=== PATIENT | female | born 1930 | race Caucasian/White ===

== ENCOUNTER 2017-10-21 11:28 | Observation (INO) ==
--- NOTE | 2017-10-21 12:11 | Emergency Department Note ---
START Narrative - START START: I examined this patient and my medical decision-making was reviewed with the Resident Physician. I agree with the documented findings, disposition and treatment plan as described except to the extent set forth below. 86 showed female presents to the emergency room for syncope. Patient was getting out of the bath or shower and remembers seeing black spots and woke up on the floor. There were staff members from the long-term around her. She lives in the [facility]. She denies any pain at this time. She is slightly somnolent. She is able to move all 4 extremities. We will do a syncopal workup here in the ER. Possible admission. Patient is a full code. I noticed her EKG to have a heart rate in the 50s. The only previous EKG was in 2004. Anticipate likely admission for her due to her heart rate in the 50s with the syncopal history.
--- NOTE | 2017-10-21 12:23 | Emergency Department Note ---
Disposition Clinical Impression: Syncope Qualifiers: Syncope type: unspecified Qualified Code(s): R55 - Syncope and collapse Disposition: Admitted As Inpatient Condition: Good Referrals: Tirso Espinoza MD [Primary Care Provider] - Forms: ED Satisfaction Letter Syncope HPI - General Chief Complaint: ED Syncope Stated Complaint: passed out Time Seen by Provider: 10/21/17 11:30 Source: patient, EMS Limitations: no limitations Nursing Notes Reviewed: Yes Vital Signs Reviewed: Yes - History of Present Illness HPI Narrative: Patient presents today from half-way for evaluation of syncope. Patient was in the shower when she passed out. Came to with sternal rub. It is unknown how long she was down for. Patient states she felt kind of sick to her stomach at the time she woke but otherwise feels well now. Patient has no complaints this time. Patient did hit her head. Patient is on aspirin. Patient does have a history of diabetes and not eat breakfast. Blood sugar within normal limits. - Related Data Home Medications Medication Instructions Recorded Confirmed Acetaminophen [Tylenol Arthritis] 650 mg PO Q4H 10/21/17 10/21/17 Aspirin [Lo-Dose Aspirin EC] 81 mg PO DAILY 10/21/17 10/21/17 Cyanocobalamin (B-12) [Vitamin B12] 1,000 mcg IJ AD 10/21/17 10/21/17 Docusate [Colace] 100 mg PO TID 10/21/17 10/21/17 Donepezil [Aricept] 10 mg PO HS 10/21/17 10/21/17 Ergocalciferol (VITAMIN D2) 50,000 unit PO QWEEK 10/21/17 10/21/17 [Vitamin D2] Furosemide [Lasix] 20 mg PO BID 10/21/17 10/21/17 Guaifen/Dextromethorphan/PE [Child 10 ml PO Q4H 10/21/17 10/21/17 Mucus Relief M-S Cold Lq] Latanoprost [Xalatan] 2.5 ml OP AD 10/21/17 10/21/17 Melatonin [Melatin] 6 mg PO HS 10/21/17 10/21/17 Memantine HCl [Namenda Xr] 28 mg PO DAILY 10/21/17 10/21/17 Metoprolol [Lopressor] 12.5 mg PO BID 10/21/17 10/21/17 Potassium Chloride [Klor-Con 10] 10 meq PO DAILY 10/21/17 10/21/17 Simvastatin [Zocor] 20 mg PO HS 10/21/17 10/21/17 SitaGLIPtin [Januvia] 100 mg PO DAILY 10/21/17 10/21/17 Allergies Allergy/AdvReac Type Severity Reaction Status Date / Time No Known Allergies Allergy Verified 10/21/17 11:39 Review of Systems: CONSTITUTIONAL: No weight loss, fever, chills, weakness or fatigue. HEENT: Eyes: No visual changes. Ears, Nose, Throat: No hearing loss, difficulty talking or unable to swallow. SKIN: No rash or itching. CARDIOVASCULAR: No chest pain, chest pressure or chest discomfort. No palpitations or edema. RESPIRATORY: No shortness of breath, cough or sputum. GASTROINTESTINAL: Nausea is resolved; No anorexia, vomiting or diarrhea. No abdominal pain or blood. GENITOURINARY: No burning on urination or hematuria. NEUROLOGICAL: No headache, dizziness, syncope, paralysis, ataxia, numbness or tingling in the extremities. No change in bowel or bladder control. MUSCULOSKELETAL: No muscle pain, back pain, joint pain or stiffness. Past Medical History - Past Medical History Medical history: Reports: arthritis, diabetes, hyperlipidemia, hypertension, other Psychiatric history: Reports: depression - Social History Smoking Status: Never smoker Smokeless Tobacco Status: No Alcohol use: Reports: none Drug use: Reports: none Physical Exam General: Well appearing, nontoxic, no acute distress Head: Normocephalic Atraumatic Eyes: PERRL, EOMI ENT: Airway patent, no stridor Neck: supple, no meningismus Chest: Lungs clear to auscultation bilateral Cardiac: Regular rate and rhythm, no murmurs, rubs or gallops Abdomen: soft, nontender, nondistended; no guarding, rebound, or tenderness to percussion Musculoskeletal: Calves symmetric, nontender, no palpable cord Skin: No rash, normal skin tone Neuro: Alert and Oriented to person, place; No focal deficit, CN 2-12 symmetric and intact - General Limitations: no limitations General appearance: alert, in no apparent distress Course - Reevaluation(s) Reevaluation #1: Discussed with half-way. The nurse who was taking care of the patient called to check on her. The patient's episode is approximately the second time this is happened. First time did not undergo evaluation. The patient got a shower and after the shower but has decreased responsiveness. They laid her down and tried to obtain a pulse. They state that her pulse was in the low 40s and the patient was "half white". The blood sugar was checked and found to be 155. The blood pressure was found to be above 140 systolically. Patient remains asymptomatic at this time. - Consultations Consultation #1: Discussed with hospitalist, Dr. Rosen, patient accepted for admission. Vital Signs Temperature 98.6 F 10/21/17 11:31 Pulse Rate 51 10/21/17 11:31 Respiratory Rate 16 10/21/17 11:31 Blood Pressure 102/58 10/21/17 11:31 O2 Sat by Pulse Oximetry 95 10/21/17 11:31 Temperature 98.6 F 10/21/17 11:31 Pulse Rate 61 10/21/17 14:44 Respiratory Rate 16 10/21/17 14:44 Blood Pressure 125/61 10/21/17 14:44 O2 Sat by Pulse Oximetry 94 10/21/17 14:44 Oxygen Delivery Oxygen Delivery Room Air Syncope - Lab Data Result diagrams: 10/21/17 12:08 10/21/17 12:08 Lab Results 10/21/17 10/21/17 10/21/17 Range/Units 12:02 12:08 12:08 WBC 9.6 (4.3-11.1) K/mcL RBC 4.19 (3.82-4.97) M/mcL Hgb 12.1 (11.5-15.4) g/dL Hct 36.9 (35.3-44.9) % MCV 88.1 (83.0-100.0) fL MCH 28.9 (28.0-33.3) pg MCHC 32.8 (31.6-35.5) g/dL RDW 14.2 (11.5-14.5) % Plt Count 211 (140-400) K/mcL MPV 10.8 (9.4-12.4) fL Immature Gran % 0.4 (0-4) % Seg Neutrophils % 76.0 % Lymphocytes % 15.4 % Monocytes % 6.2 % Eosinophils % 1.6 % Basophils % 0.4 % Neutrophils # 7.3 (1.6-8.9) K/mcL Lymphocytes # 1.5 (0.6-4.6) K/mcL Monocytes # 0.6 (0.0-1.3) K/mcL Eosinophils # 0.2 (0.0-0.6) K/mcL Basophils # 0.0 (0.0-0.2) K/mcL Sodium 142 (136-145) mEq/L Potassium 4.3 (3.5-5.1) mEq/L Chloride 107 (98-107) mEq/L Carbon Dioxide 28 (23-29) mEq/L BUN 20 (8-23) mg/dL Creatinine 1.10 (0.60-1.20) mg/dL Est GFR ( Amer) 57 L (> 60) Est GFR (Non-Af Amer) 47 L (> 60) BUN/Creatinine Ratio 18 (6-26) Glucose 133 H (70-105) mg/dL POC Glucose 129 H (58-89) Calculated Osmolality 299 (280-300) Calcium 8.6 (8.6-10.3) mg/dL Magnesium (1.6-2.6) mg/dL Troponin I (< 0.04) ng/mL 10/21/17 10/21/17 Range/Units 12:08 12:08 WBC (4.3-11.1) K/mcL RBC (3.82-4.97) M/mcL Hgb (11.5-15.4) g/dL Hct (35.3-44.9) % MCV (83.0-100.0) fL MCH (28.0-33.3) pg MCHC (31.6-35.5) g/dL RDW (11.5-14.5) % Plt Count (140-400) K/mcL MPV (9.4-12.4) fL Immature Gran % (0-4) % Seg Neutrophils % % Lymphocytes % % Monocytes % % Eosinophils % % Basophils % % Neutrophils # (1.6-8.9) K/mcL Lymphocytes # (0.6-4.6) K/mcL Monocytes # (0.0-1.3) K/mcL Eosinophils # (0.0-0.6) K/mcL Basophils # (0.0-0.2) K/mcL Sodium (136-145) mEq/L Potassium (3.5-5.1) mEq/L Chloride (98-107) mEq/L Carbon Dioxide (23-29) mEq/L BUN (8-23) mg/dL Creatinine (0.60-1.20) mg/dL Est GFR ( Amer) (> 60) Est GFR (Non-Af Amer) (> 60) BUN/Creatinine Ratio (6-26) Glucose (70-105) mg/dL POC Glucose (58-89) Calculated Osmolality (280-300) Calcium (8.6-10.3) mg/dL Magnesium 2.2 (1.6-2.6) mg/dL Troponin I < 0.03 (< 0.04) ng/mL
[2017-10-21 12:24] LABS: Basophils % 0.4 %; Eosinophils # 0.2 K/mcL (0.0-0.6); Eosinophils % 1.6 %; Hematocrit 36.9 % (35.3-44.9); Hemoglobin 12.1 g/dL (11.5-15.4); Immature Granulocytes % 0.4 % (0-4); Lymphocytes # 1.5 K/mcL (0.6-4.6); Lymphocytes % 15.4 %; Mean Corpuscular HGB Conc 32.8 g/dL (31.6-35.5); Mean Corpuscular Hemoglobin 28.9 pg (28.0-33.3); Mean Corpuscular Volume 88.1 fL (83.0-100.0); Mean Platelet Volume 10.8 fL (9.4-12.4); Monocytes # 0.6 K/mcL (0.0-1.3); Monocytes % 6.2 %; Neutrophils # 7.3 K/mcL (1.6-8.9); Platelet Count 211 K/mcL (140-400); Red Blood Count 4.19 M/mcL (3.82-4.97); Red Cell Distribution Width 14.2 % (11.5-14.5)
[2017-10-21 12:35] LABS: Calcium 8.6 mg/dL (8.6-10.3); Potassium 4.3 mEq/L (3.5-5.1)
[2017-10-21] MEDS ORDERED: Dextrose Gel 15 GM/37.5 ML TUBE PO PRN ×2 (15:32)
[2017-10-21] MEDS ORDERED: Naloxone 0.4 MG/ML INJ IVP PRN (15:32)
[2017-10-21] MEDS ORDERED: *HR* Morphine 2 MG/ML SYRINGE IVP PRN (15:32)
[2017-10-21] MEDS ORDERED: Ondansetron 4 MG/2 ML VIAL IVP PRN (15:32)
[2017-10-21] MEDS ORDERED: D5% in Water 1,000 ML IVC PRN (15:32)
[2017-10-21] MEDS ORDERED: *HR* Dextrose 50 % in Water (Syg) 50 ML SYRINGE IVP PRN (15:32)
[2017-10-21] MEDS ORDERED: *HR* OxyCODONE Immed Rel 5 MG TABLET PO PRN (15:32)
[2017-10-21] MEDS ORDERED: Acetaminophen 325 MG TABLET PO PRN (15:32)
--- NOTE | 2017-10-21 15:43 | Internal Med History&Physical ---
Date of Encounter: 10/21/17 Time of Encounter: 15:40 Assessment and Plan (1) Symptomatic bradycardia Current visit: Yes Status: Acute Syncopal episode likely secondary to symptomatic bradycardia related to beta tracey Hold metoprolol, fall precautions, telemetry Troponins If the patient's bradycardia does not improve, we will consult cardiology Omeprazole for GI prophylaxis and subcutaneous heparin for DVT prophylaxis. The patient will be admitted for observation. Full code. Time spent on this admission 40 minutes (2) Diabetes Current visit: Yes Status: Acute Insulin sliding scale Qualifiers: Diabetes mellitus type: type 2 Diabetes mellitus complication status: without complication Diabetes mellitus mcc insulin use: without longwall foreman use Qualified Code(s): E11.9 - Type 2 diabetes mellitus without complications (3) Chronic kidney disease, stage III (moderate) Current visit: Yes Status: Acute (4) CVA (cerebral vascular accident) Current visit: Yes Status: Acute Newly diagnosed Order echocardiogram and carotid ultrasound May order MRI of the brain Continue aspirin, statin, check lipid panel Qualifiers: CVA mechanism: unspecified Qualified Code(s): I63.9 - Cerebral infarction, unspecified (5) Syncope Current visit: Yes Status: Acute Possibly secondary to symptomatic bradycardia Qualifiers: Syncope type: unspecified Qualified Code(s): R55 - Syncope and collapse Internal Medicine - H&P: HPI Chief complaint: Syncopal episode Admitted From: Emergency Dept History of present illness: Ms. Lucas is a 86 year old female with a past medical history of dementia, diabetes type 2 not insulin-dependent, chronic kidney disease is stage III, CVA , who was transferred from a half-way after she passed out in the shower, the patient is not able to provide much history as she is disoriented in time but mentioned that she was dizzy before this happened. According to the half-way notes her heart rate was in the low 40s, she was pale, glucose was 155 and it is unknown how long she was out. Apparently these happen before. Her heart rate and EKG at the moment is 51 she has sinus bradycardia with Q waves in the anterior and inferior leads. Glucose over here is 133. CT scan of the head shows an old left basal ganglia lacunar infarction, chest x-ray is unremarkable. No other complaints Past Med Surg Social Fam HX - Past Medical History Medical history: arthritis (Osteoarthritis), CVA, diabetes (Not insulin- dependent), glaucoma (Open-angle), hyperlipidemia, hypertension, renal disease ( Chronic kidney disease stage III), other (Depression, dementia) Psychiatric history: depression - Past Surgical History Surgical History: no surgical history - Social History Smoking Status: Never smoker Smokeless Tobacco Status: No Alcohol use: none Drug use: none - Additional Family History Additional family history: Unknown Internal Medicine - H&P: Meds Acetaminophen [Tylenol Arthritis] 650 mg PO Q4H 10/21/17 [History] Aspirin [Lo-Dose Aspirin EC] 81 mg PO DAILY 10/21/17 [History] Cyanocobalamin (B-12) [Vitamin B12] 1,000 mcg IJ AD 10/21/17 [History] Docusate [Colace] 100 mg PO TID 10/21/17 [History] Donepezil [Aricept] 10 mg PO HS 10/21/17 [History] Ergocalciferol (VITAMIN D2) [Vitamin D2] 50,000 unit PO QWEEK 10/21/17 [History] Furosemide [Lasix] 20 mg PO BID 10/21/17 [History] Guaifen/Dextromethorphan/PE [Child Mucus Relief M-S Cold Lq] 10 ml PO Q4H [History] Latanoprost [Xalatan] 2.5 ml OP AD 10/21/17 [History] Melatonin [Melatin] 6 mg PO HS 10/21/17 [History] Memantine HCl [Namenda Xr] 28 mg PO DAILY 10/21/17 [History] Metoprolol [Lopressor] 12.5 mg PO BID 10/21/17 [History] Potassium Chloride [Klor-Con 10] 10 meq PO DAILY 10/21/17 [History] Simvastatin [Zocor] 20 mg PO HS 10/21/17 [History] SitaGLIPtin [Januvia] 100 mg PO DAILY 10/21/17 [History] 3 Allergy/AdvReac Type Severity Reaction Status Date / Time No Known Allergies Allergy Verified 10/21/17 11:39 All Systems PM: A 10-system review of systems was performed and is negative for pertinent findings except as documented above in the HPI. Review of systems: The patient appears comfortable, unable to complete review of systems due to confusion. - Constitutional Vitals: Temp Pulse Resp BP Pulse Ox 98.6 F 61 14 134/63 94 10/21/17 11:31 10/21/17 15:21 10/21/17 15:21 10/21/17 15:21 10/21/17 15:21 General appearance: Present: A&O X 2 - Head Head exam: Present: atraumatic, normocephalic - Eye Eye exam: Present: PERRL, conjuntiva pink, sclera anicteric Pupils: Present: PERRL - Neck Neck exam general surgery: Present: supple, trachea midline. Absent: lymphadenopathy - Respiratory Respiratory exam: Present: CTAB. Absent: accessory muscle use, rales, rhonchi, wheezes - Cardiovascular Cardiovascular exam: Present: bradycardia, RRR, +S1, +S2. Absent: diastolic murmur, gallop, rubs, systolic murmur - GI/Abdominal GI/Abdominal exam: Present: normal bowel sounds, soft, no peritoneal signs. Absent: distended, tenderness - Extremities Exam Extremities exam: Present: warm, radial pulses palpable and symmetrical. Absent : calf tenderness, cyanotic, pedal edema - Neurological Exam Neurological exam: Present: CN II-XII intact, no focal deficits. Absent: oriented X3 (Disoriented in time), pronater drift, facial droop, speech deficit - Skin Skin exam: Present: dry, intact Internal Med - H&P Results - Labs CBC & Chem 7: 10/21/17 12:08 10/21/17 12:08 Labs: Short CBC 10/21/17 Range/Units 12:08 WBC 9.6 (4.3-11.1) K/mcL Hgb 12.1 (11.5-15.4) g/dL Hct 36.9 (35.3-44.9) % Plt Count 211 (140-400) K/mcL Neutrophils # 7.3 (1.6-8.9) K/mcL BMP 10/21/17 12:08 Sodium 142 Potassium 4.3 Chloride 107 Carbon Dioxide 28 BUN 20 Creatinine 1.10 Glucose 133 H Calcium 8.6 Cardiac Enzymes 10/21/17 Range/Units 12:08 Troponin I < 0.03 (< 0.04) ng/mL - Impressions ITS Impressions Chest X-Ray 10/21/17 11:55 IMPRESSION: 1. No acute radiographic abnormality in the chest. D/ / Shade Solano MD / Shade Solano MD Interpreting Provider: Shade Solano MD Head CT 10/21/17 11:56 IMPRESSION: No acute intracranial abnormality. Mild atrophy and white matter disease, old left basal ganglia lacunar infarction. D/ / Dorian Bledsoe MD / Dorian Bledsoe MD Interpreting Provider: Dorian Bledsoe MD
[2017-10-21] MEDS ORDERED: NON-FORMULARY MEDICATION 1 EACH EACH (Cyanocobalamin (B-12) 1,000 MCG) IJ SCH (15:45)
[2017-10-21] MEDS: Insulin LISPRO 300 UNITS/3 ML VIAL SQ SCH ×2 (17:11→21:43)
[2017-10-21] MEDS: Latanoprost 2.5 ML BOTTLE BOTH EYES SCH (17:29)
[2017-10-21] MEDS: *HR* Heparin 5,000 UNIT/ML VIAL SQ SCH ×2 (17:29→21:36)
[2017-10-21] MEDS: 0.9 % Sodium Chloride 1,000 ML IVC SCH (17:29)
[2017-10-22] MEDS: *HR* Heparin 5,000 UNIT/ML VIAL SQ SCH ×3 (06:01→20:33)
[2017-10-22 06:14] LABS: BUN/Creatinine Ratio 24 (6-26); Blood Urea Nitrogen 20 mg/dL (8-23); Calcium 8.1 mg/dL (8.6-10.3); Carbon Dioxide 26 mEq/L (23-29); Chloride 109 mEq/L (98-107); Chol/HDL Ratio 2.9 (0-4.9); Cholesterol 104 mg/dL (< 200); Glucose 83 mg/dL (70-105); HDL Cholesterol 36 mg/dL (40-59); LDL Cholesterol,Calculated 53 mg/dL (0-99); Magnesium 2.2 mg/dL (1.6-2.6); Osmolality,Calculated 296 (280-300); Phosphorous 3.6 mg/dL (2.7-4.5); Potassium 4.1 mEq/L (3.5-5.1); Sodium 142 mEq/L (136-145); Triglycerides 73 mg/dL (< 150); eGFR For African Americans > 60 (> 60); eGFR For Non-African Americans > 60 (> 60)
[2017-10-22] MEDS: Insulin LISPRO 300 UNITS/3 ML VIAL SQ SCH ×4 (09:00→20:40)
--- NOTE | 2017-10-22 09:00 | Electrocardiograph Report ---
[facility] Test Date: 2017-10-21 Pat Name: Marlene Lucas Department: 104 Room: 3B11 Gender: F Production Control Clerk: : 1930 Requested By: Delroy Das Order Number: [id number] Reading MD: Wicho Porter MD Measurements Intervals Howard Rate: 51 P: 22 MI: 177 QRS: -15 QRSD: 90 T: 36 QT: 442 QTc: 418 Interpretive Statements SINUS BRADYCARDIA LOW QRS VOLTAGE IN PRECORDIAL LEADS POSSIBLE ANTERIOR MYOCARDIAL INFARCTION, OF INDETERMINATE AGE WARNING: DATA QUALITY MAY AFFECT INTERPRETATION Electronically Signed On 10-22-2017 8:59:12 EST by Wicho Porter MD
[2017-10-22] MEDS: Aspirin Enteric Coated 81 MG Tablet PO SCH (10:43)
[2017-10-22] MEDS: (Memantine Hcl [Namenda Xr] 28 MG) PO SCH (10:45)
[2017-10-22] MEDS: Latanoprost 2.5 ML BOTTLE BOTH EYES SCH (16:13)
--- NOTE | 2017-10-22 16:53 | Internal Med Progress Note ---
Date of Encounter: 10/22/17 Time of Encounter: 16:51 - Assessment and plan (1) Symptomatic bradycardia Current Visit: Yes Status: Acute Assessment and plan: Syncopal episode likely secondary to symptomatic bradycardia related to beta tracey EKG with Sinus Bradicardia Hold metoprolol, fall precautions, telemetry orthostatic blood pressure reviewed, variable pulse rate Troponins less than 0.03 Omeprazole for GI prophylaxis and subcutaneous heparin for DVT prophylaxis. MR/MR head/brain w/o contrast IMPRESSION: 1. No acute intracranial abnormality. No acute infarct. 2. Global parenchymal volume loss with chronic microvascular ischemic change. 3. Sequelae of a prior small hemorrhagic infarct within the left periventricular white matter extending to the left basal ganglia. echo reviewed with LVEF 65% Bilateral carotid systems essentially normal. (2) Syncope Current Visit: Yes Status: Acute Assessment and plan: please see above plan, no further syncope episodes noted reviewed telemetry strips, no episodes below a rate of 70 Per the ER note the patient stated she felt kind of sick to her stomach at the time but she woke up and otherwise feels well now. Patient did hit her head. Patient is on aspirin. Patient does have a history of diabetes and did not eat breakfast. Blood sugar within normal limits. ER had discussed with [facility]. Per the nurse who was taking care of the patient: "This episode is approximately the second time this happened. First time patient did not undergo evaluation. The patient got a shower and after the shower had decreased responsiveness. They laid her down and tried to obtain a pulse. They state that her pulse was in the low 40s and the patient was "half white". The blood sugar was checked and found to be 155. The blood pressure was found to be above 140 systolically". Qualifiers: Syncope type: unspecified Qualified Code(s): R55 - Syncope and collapse (3) Diabetes Current Visit: No Status: Chronic Assessment and plan: insulin sliding coverage scale Qualifiers: Diabetes mellitus type: type 2 Diabetes mellitus complication status: without complication Diabetes mellitus buttermaker continuous churn insulin use: without buttermaker continuous churn use Qualified Code(s): E11.9 - Type 2 diabetes mellitus without complications (4) Urine finding Current Visit: Yes Status: Acute Assessment and plan: urine very foul smelling and discolored, patient incontinent, straight cath for urine specimen, await results to r/o UTI Patient has no complaints (5) Chronic kidney disease, stage III (moderate) Current Visit: Yes Status: Acute (6) CVA (cerebral vascular accident) Current Visit: No Status: Chronic Assessment and plan: Bilateral carotid systems essentially normal Echocardiogram reviewed MRI brain IMPRESSION: 1. No acute intracranial abnormality. No acute infarct. 2. Global parenchymal volume loss with chronic microvascular ischemic change. 3. Sequelae of a prior small hemorrhagic infarct within the left periventricular white matter extending to the left basal ganglia. Continue aspirin, statin lipid panel reviewed. Qualifiers: CVA mechanism: unspecified Qualified Code(s): I63.9 - Cerebral infarction, unspecified - Subjective Interval history: Patient is confused, she wanted an L5 was there to paint her fingernails. She denied any pain. She does have a strong spell smell of urine. She was cooperative and followed simple commands. She was unable to give me any history of present illness. - Constitutional Vitals: Temp Pulse Resp BP Pulse Ox 98.0 F 79 16 167/93 95 10/22/17 11:29 10/22/17 11:29 10/22/17 11:29 10/22/17 11:29 10/22/17 11:29 General appearance: Present: A&O X 1, pleasant, no acute distress - Head Head exam: Present: atraumatic, normocephalic - Eye Eye exam: Present: conjuntiva pink, sclera anicteric - Neck Neck exam general surgery: Present: supple, trachea midline. Absent: lymphadenopathy - Respiratory Respiratory exam: Present: CTAB. Absent: accessory muscle use, rales, rhonchi, wheezes - Cardiovascular Cardiovascular exam: Present: RRR, +S1, +S2. Absent: diastolic murmur, gallop, rubs, systolic murmur - GI/Abdominal GI/Abdominal exam: Present: normal bowel sounds, soft, no peritoneal signs. Absent: distended, tenderness - Extremities Exam Extremities exam: Present: warm, radial pulses palpable and symmetrical. Absent : calf tenderness, cyanotic, pedal edema - Neurological Exam Neurological exam: Present: CN II-XII intact, oriented X3, no focal deficits. Absent: pronater drift, facial droop, speech deficit - Skin Skin exam: Present: dry, intact Internal Medicine: Result - Labs CBC & Chem 7: 10/21/17 12:08 10/22/17 05:18 Labs: BMP 10/22/17 05:18 Sodium 142 Potassium 4.1 Chloride 109 H Carbon Dioxide 26 BUN 20 Creatinine 0.83 Glucose 83 Calcium 8.1 L Cardiac Enzymes 10/21/17 10/22/17 Range/Units 21:31 05:18 Troponin I < 0.03 < 0.03 (< 0.04) ng/mL - Impressions Impressions Echocardiogram 10/22/17 15:32 Impressions: LVEF 65%. Mild left ventricular diastolic dysfunction. Normal right ventricular structure and function. Mild mitral regurgitation. Mild-moderate tricuspid regurgitation. TR signal not well obtained - unable to estimate RVSP. Left Ventricular Wall Motion: Rest Echo Findings All wall segments showed normal motion. Findings: Study Quality * Technically adequate exam. ECG Findings * Normal sinus rhythm. Left Ventricle * LVEF 65%. * Normal LV chamber size, wall thickness and function. * Mild left ventricular diastolic dysfunction. Right Ventricle * Normal right ventricular structure and function. Left Atrium * Normal left atrial size. Right Atrium * Normal right atrial size. Aortic Valve * Trileaflet aortic valve. * Mildly sclerotic aortic valve leaflets. * No aortic stenosis. * Trace aortic regurgitation. Mitral Valve * Normal mitral valve structure. * No mitral stenosis. * Mild mitral regurgitation. Tricuspid Valve * Normal tricuspid valve structure. * Mild-moderate tricuspid regurgitation. Pulmonic Valve * Pulmonic valve is not well visualized. * No pulmonic stenosis. * No pulmonic regurgitation. Pulmonary Artery * Pulmonary artery not well visualized. Aorta * Normally sized aortic root. * Size of the ascending aorta is not well visualized. Interatrial Septum * Interatrial septum not well evaluated. Pericardium * There is no pericardial effusion present. IVC * The IVC is not well evaluated. Brain MRI 10/22/17 15:47 IMPRESSION: 1. No acute intracranial abnormality. No acute infarct. 2. Global parenchymal volume loss with chronic microvascular ischemic change. 3. Sequelae of a prior small hemorrhagic infarct within the left periventricular white matter extending to the left basal ganglia. D/ / Abdias Bright MD / Abdias Bright MD Interpreting Provider: Abdias Bright MD Consult Discharge Plan - Plan Referrals: Tirso Espinoza MD [Primary Care Provider] -
[2017-10-22 17:23] LABS: Bilirubin,Urine Negative (Negative); Blood,Urine Trace (Negative); Clarity,Urine Cloudy (Clear); Color,Urine Yellow (Yellow); Glucose,Urine (UA) Normal (Normal); Ketones,Urine 15 mg/dL (Negative); Leukocyte Esterase,Urine Moderate (Negative); Nitrite,Urine Positive (Negative); Protein,Urine 100 mg/dL (Neg-Trace); Specific Gravity,Urine 1.021 (1.010-1.025); Urobilinogen,Urine Normal (Normal)
[2017-10-22 17:25] LABS: Bacteria,Urine Many per hpf (None-Few); Hyaline Casts,Urine None Seen per lpf (None-Few); RBC,Urine 50-100 per hpf (0-3); Squamous Epithelial Cell,Urine Many per lpf (None-Few); WBC,Urine TNTC per hpf (0-3)
[2017-10-22 18:10] LABS: Bilirubin,Urine Negative (Negative); Blood,Urine Large (Negative); Clarity,Urine Cloudy (Clear); Color,Urine Yellow (Yellow); Glucose,Urine (UA) Normal (Normal); Ketones,Urine 15 mg/dL (Negative); Leukocyte Esterase,Urine Moderate (Negative); Nitrite,Urine Positive (Negative); Protein,Urine 100 mg/dL (Neg-Trace); Urobilinogen,Urine Normal (Normal)
[2017-10-22 18:11] LABS: Bacteria,Urine Many per hpf (None-Few); Hyaline Casts,Urine None Seen per lpf (None-Few); RBC,Urine 50-100 per hpf (0-3); Squamous Epithelial Cell,Urine Many per lpf (None-Few); WBC,Urine 50-100 per hpf (0-3)
[2017-10-22] MEDS: 0.9 % Sodium Chloride 1,000 ML IVC SCH (22:11)
[2017-10-23] MEDS: *HR* Heparin 5,000 UNIT/ML VIAL SQ SCH ×2 (05:24→14:32)
[2017-10-23] MEDS: Insulin LISPRO 300 UNITS/3 ML VIAL SQ SCH ×3 (08:04→17:37)
[2017-10-23] MEDS: Aspirin Enteric Coated 81 MG Tablet PO SCH (08:42)
[2017-10-23] MEDS: (Memantine Hcl [Namenda Xr] 28 MG) PO SCH (09:58)
[2017-10-23] MEDS: Latanoprost 2.5 ML BOTTLE BOTH EYES SCH (14:37)
[2017-10-23 14:50] VITALS: BP 161/84
--- NOTE | 2017-10-23 16:08 | Discharge Summary ---
Date of Encounter: 10/23/17 Time of Encounter: 16:13 - Discharge Diagnosis (1) Symptomatic bradycardia Priority: Primary Status: Acute Comments: Syncopal episode likely secondary to symptomatic bradycardia related to beta tracey Metoprolol was held, heart rate has been controlled blood pressure borderline but no further episodes of syncope or dizziness. We will continue to hold metipranolol and changed to amlodipine low-dose Troponins were negative, no chest pain or related symptoms Brain MRI completed with no acute abnormality carotid duplex report findings as bilateral carotid systems essentially normal head CT no acute findings Echocardiogram with LVEF 65%, mild left ventricular diastolic dysfunction, normal right ventricular structure and function, mild mitral regurg, and, mild/ moderate tricuspid regurg, normal right atrial size (2) Syncope Priority: Primary Status: Acute Comments: No further episodes of syncope, with history of both occurrences occurring shortly after showering may be a vasovagal response and be very careful when the patient is in the bathroom area See workup above was essentially negative Switch from a beta tracey to amlodipine Qualifiers: Syncope type: unspecified Qualified Code(s): R55 - Syncope and collapse (3) Diabetes Priority: Secondary Status: Chronic Comments: Seen previous medication regime Qualifiers: Diabetes mellitus type: type 2 Diabetes mellitus complication status: without complication Diabetes mellitus group home insulin use: without group home use Qualified Code(s): E11.9 - Type 2 diabetes mellitus without complications (4) Urine finding Priority: Secondary Status: Acute Comments: Patient has no urinary symptoms or complaints of burning on urination. Urinalysis was reviewed Urine culture was sent but is pending WBCs normal, mentation at baseline No need to treat unless culture proves otherwise (5) Chronic kidney disease, stage III (moderate) Priority: Secondary Status: Acute Comments: baseline (6) CVA (cerebral vascular accident) Priority: Secondary Status: Chronic Comments: History of stroke, no signs of new stroke or TIA at this time Qualifiers: CVA mechanism: unspecified Qualified Code(s): I63.9 - Cerebral infarction, unspecified - Discharge Medications Prescriptions: amLODIPine [Norvasc] 5 mg PO DAILY #30 tablet Home Medications: Acetaminophen [Tylenol Arthritis] 650 mg PO Q4H 10/21/17 [History] Aspirin [Lo-Dose Aspirin EC] 81 mg PO DAILY 10/21/17 [History] Cyanocobalamin (B-12) [Vitamin B12] 1,000 mcg IJ AD 10/21/17 [History] Docusate [Colace] 100 mg PO TID 10/21/17 [History] Donepezil [Aricept] 10 mg PO HS 10/21/17 [History] Ergocalciferol (VITAMIN D2) [Vitamin D2] 50,000 unit PO QWEEK 10/21/17 [History] Furosemide [Lasix] 20 mg PO BID 10/21/17 [History] Guaifen/Dextromethorphan/PE [Child Mucus Relief M-S Cold Lq] 10 ml PO Q4H [History] Latanoprost [Xalatan] 2.5 ml OP AD 10/21/17 [History] Melatonin [Melatin] 6 mg PO HS 10/21/17 [History] Memantine HCl [Namenda Xr] 28 mg PO DAILY 10/21/17 [History] Potassium Chloride [Klor-Con 10] 10 meq PO DAILY 10/21/17 [History] Simvastatin [Zocor] 20 mg PO HS 10/21/17 [History] SitaGLIPtin [Januvia] 100 mg PO DAILY 10/21/17 [History] amLODIPine [Norvasc] 5 mg PO DAILY #30 tablet 10/23/17 [Rx] Allergies/Adverse Reactions: 3 Allergy/AdvReac Type Severity Reaction Status Date / Time No Known Allergies Allergy Verified 10/21/17 11:39 Date of admission: 10/21/17 15:53 Primary care physician: Tirso Espinoza MD Discharging clinician: Carmenza Marion Anticipated date of discharge: 10/23/17 - Patient Status Disposition: Transfer SNF Functional capacity at discharge: independent ambulation Overall status at discharge: patient is back to baseline - Discharge Instructions Follow Up With: Tirso Espinoza MD [Primary Care Provider] - - Diet and Activity Activity: as per physical therapy, increase activity as tolerated Diet: advance to your usual diet Interval History: The patient is awake and communicating today, she denies any complaints, she would like to have her fingernails painted, she has been out of bed, she denies any chest pain shortness of breath fever chills or pain Hospital course: Ms. Lucas is a 86 year old female with a past medical history of dementia, diabetes type 2 not insulin-dependent, chronic kidney disease is stage III, CVA , who [facility] after she passed out in the shower, the patient is not able to provide much history as she was disoriented in time but mentioned that she was dizzy before this happened. According to the penitentiary notes her heart rate was in the low 40s, she was pale, glucose was 155 and it is unknown how long she was out. Apparently this happened before. Her heart rate and EKG in the ED were 51 with sinus bradycardia/ Q waves in the anterior and inferior leads. Glucose over here is 133. CT scan of the head shows an old left basal ganglia lacunar infarction, chest x-ray is unremarkable. No other complaints. Patient has had no further syncopal episodes. Her Lopressor has been held and we will continue to hold that on discharge back to the senior care facility. We will start low-dose Norvasc for blood pressure control, her heart rate has been well controlled during her stay here in the mid 70s. Her mentation waxes and wanes with her underlying dementia and time of day. Please refer to the assessment and plan for further details - Time Spent with Patient Total time spent providing and/or coordinating discharge services: Less than 30 minutes - Constitutional Vitals: Temp Pulse Resp BP Pulse Ox 98.3 F 69 16 161/84 95 10/23/17 14:49 10/23/17 14:49 10/23/17 14:49 10/23/17 14:49 10/23/17 14:49 General appearance: Present: A&O X 1, pleasant, no acute distress - Head Head exam: Present: atraumatic, normocephalic - Eye Eye exam: Present: conjuntiva pink, sclera anicteric - Neck Neck exam general surgery: Present: supple, trachea midline. Absent: lymphadenopathy - Respiratory Respiratory exam: Present: CTAB. Absent: accessory muscle use, rales, rhonchi, wheezes - Cardiovascular Cardiovascular exam: Present: RRR, +S1, +S2. Absent: diastolic murmur, gallop, rubs, systolic murmur - GI/Abdominal GI/Abdominal exam: Present: normal bowel sounds, soft, no peritoneal signs. Absent: distended, tenderness - Extremities Exam Extremities exam: Present: warm, radial pulses palpable and symmetrical. Absent : calf tenderness, cyanotic, pedal edema - Neurological Exam Neurological exam: Present: no focal deficits. Absent: pronater drift, facial droop, speech deficit - Skin Skin exam: Present: dry, intact, warm
--- NOTE | 2017-10-23 16:41 | Physician Discharge Referral ---
ExtendedCare Referral Info Transfer To: [facility] Provider in Charge: manda Marion Provider in Charge after Transfer: PCP Institutional Level of Care: Skilled - Diagnosis (1) Symptomatic bradycardia Status: Acute (2) Syncope Priority: Primary Status: Acute (3) Diabetes Priority: Secondary Status: Chronic (4) Urine finding Priority: Secondary Status: Acute (5) Chronic kidney disease, stage III (moderate) Priority: Secondary Status: Acute (6) CVA (cerebral vascular accident) Priority: Secondary Status: Chronic Prognosis: Fair Aware of Diagnosis: Family Aware of Prognosis: Family - Transfer Medications Prescriptions: amLODIPine [Norvasc] 5 mg PO DAILY #30 tablet Home Medications: Acetaminophen [Tylenol Arthritis] 650 mg PO Q4H 10/21/17 [History] Aspirin [Lo-Dose Aspirin EC] 81 mg PO DAILY 10/21/17 [History] Cyanocobalamin (B-12) [Vitamin B12] 1,000 mcg IJ AD 10/21/17 [History] Docusate [Colace] 100 mg PO TID 10/21/17 [History] Donepezil [Aricept] 10 mg PO HS 10/21/17 [History] Ergocalciferol (VITAMIN D2) [Vitamin D2] 50,000 unit PO QWEEK 10/21/17 [History] Furosemide [Lasix] 20 mg PO BID 10/21/17 [History] Guaifen/Dextromethorphan/PE [Child Mucus Relief M-S Cold Lq] 10 ml PO Q4H [History] Latanoprost [Xalatan] 2.5 ml OP AD 10/21/17 [History] Melatonin [Melatin] 6 mg PO HS 10/21/17 [History] Memantine HCl [Namenda Xr] 28 mg PO DAILY 10/21/17 [History] Potassium Chloride [Klor-Con 10] 10 meq PO DAILY 10/21/17 [History] Simvastatin [Zocor] 20 mg PO HS 10/21/17 [History] SitaGLIPtin [Januvia] 100 mg PO DAILY 10/21/17 [History] amLODIPine [Norvasc] 5 mg PO DAILY #30 tablet 10/23/17 [Rx] Allergies/Adverse Reactions: 3 Allergy/AdvReac Type Severity Reaction Status Date / Time No Known Allergies Allergy Verified 10/21/17 11:39 - Respiratory Orders Smoking Cessation: Smoking cessation has been advised. For more information, call the [place] Tobacco Quit Line at 1-306-XPDG-NOW. - Mobility Orders Other (per facility) - Rehabiliation Orders Rehab Orders: Evaluation for Physical Therapy, Evaluation for Occupational Therapy - Diet Orders Regular CERTIFICATION: I certify that the transfer of the above named patient to an Extended Care Facility is necessary for the continuing treatment of the diagnosis listed. The above information is true and accurate reflection of patient's current condition. Confidential - Redisclosure prohibited without a patient's written consent.
== END 2017-10-23 18:30 ==
LOC: EMEROO 11:28 → 3BNU 11:28
PROVIDERS: ADMIT Internal Medicine; ATTEND Registered Nurse